=== PATIENT | male | born 1985 | race Two or more races ===

== ENCOUNTER 2017-07-23 21:35 | Emergency (ER) | payer MEDICAID ==
[~2017-07-23] VITALS: Ht 170.2 cm; Wt 68.2 kg
[2017-07-23 21:41] VITALS: BP 152/67
== END 2017-07-23 22:15 | disposition home or self-care (01) ==
LOC: ED 22:00
DX: Z76.0 Encounter for issue of repeat prescription (principal)
CPT/HCPCS: 99281